=== PATIENT | male | born 2000 | race Caucasian/White ===

== ENCOUNTER 2020-02-06 00:11 | Emergency (ER) | payer OTHER ==
[2020-02-06] MEDS ORDERED: Lidocaine 1% w/Epinephrine 1:100K 20 ML VIAL ONE (01:00)
[2020-02-06] MEDS ORDERED: Bacitracin 1 PK ONE (02:41)
--- NOTE | 2020-02-06 10:54 | RAD ---
RIGHT HAND RADIOGRAPHS THREE VIEWS: 02/06/20 PROVIDED CLINICAL HISTORY: Laceration. FINDINGS: No evidence for fracture or other acute osseous abnormality. Alignment appears anatomic. Joint spaces appear preserved. No evidence for radiopaque foreign body. IMPRESSION: No evidence for fracture or radiopaque foreign body. POS: [facility]
== END 2020-02-06 02:50 | disposition home or self-care (01) ==
LOC: ERS 00:11
DX: S61.411A Laceration without foreign body of right hand, initial encounter (principal); W25.XXXA Contact with sharp glass, initial encounter
CPT/HCPCS: 12002; 12042